=== PATIENT | female | born 1975 | race Caucasian/White ===

== ENCOUNTER 2016-08-18 14:25 | Emergency (ER) | payer MEDICAID, MEDICARE, OTHER ==
[2016-08-18 14:39] VITALS: BP 149/94; TEMP 96.6; O2SAT 100
--- NOTE | 2016-08-18 15:33 | ED.PDOC ---
History of Present Illness - General Chief Complaint: Problem Stated Complaint: burning with urination Time Seen by Provider: 08/18/16 15:30 Source: patient Exam Limitations: no limitations - History of Present Illness Initial Comments: She stated that her burning pain on urination started 3 days ago which usually occur at the end of her urination no hematuria no nausea vomiting feels warmth, no flank pain denies history of sti. Timing/Duration: other - 3 days ago Improving Factors: nothing Worsening Factors: nothing Associated Symptoms: denies symptoms Allergies/Adverse Reactions: Allergies NO KNOWN ALLERGY Allergy (Verified 06/19/15 08:57) Home Medications: Ambulatory Orders Famotidine [Pepcid Tab] 10 mg PO BID 06/19/15 Lisinopril & Hydrochlorothiazi [Lisinopril/Hctz 10-12.5 mg] 1 tab PO DAILY 06/19 Nitrofurantoin Monohydrate Mac [Macrobid] 100 mg PO BID #10 cap 08/18/16 Phenazopyridine HCl [Pyridium] 200 mg PO BID PRN #14 tab 08/18/16 Review of Systems - Review of Systems Constitutional: States: no symptoms reported EENTM: States: no symptoms reported Respiratory: States: no symptoms reported Cardiology: States: no symptoms reported Gastrointestinal/Abdominal: States: no symptoms reported Genitourinary: States: see HPI, dysuria Musculoskeletal: States: no symptoms reported Skin: States: no symptoms reported Neurological: States: no symptoms reported Endocrine: States: no symptoms reported Hematologic/Lymphatic: States: no symptoms reported Past Medical History (General) - Patient Medical History Hx Seizures: No Hx Stroke: No Hx Dementia: No Hx of COPD: No Hx Cardiac Disorders: No Hx Congestive Heart Failure: No Hx Hypertension: Yes Hx Diabetes: No Hx Gastroesophageal Reflux: Yes Surgical History: cholecystectomy, Hysterectomy Other Surgeries:: - Vaccination History Hx Tetanus, Diphtheria Vaccination: Yes Hx Influenza Vaccination: Yes - Social History Hx Tobacco Use: Yes Hx Alcohol Use: No Hx Substance Use: No Hx Substance Use Treatment: No Hx Depression: No - Female History Patient is a Female of Child Bearing Age (10 -59 yrs old): No Family Medical History - Family History Mother Family History: Unknown Living Status: Still Living Hx Family Asthma: No Hx Family Hypertension: Yes Hx Family Diabetes: Yes Hx Family Cancer: Yes - prostate-dad Physical Exam - Physical Exam General Appearance: Alert, No apparent distress Ears, Nose, Throat: hearing grossly normal, normal ENT inspection, normal pharynx Neck: non-tender, full range of motion, supple Respiratory: chest non-tender, lungs clear, normal breath sounds, no respiratory distress Cardiovascular/Chest: normal peripheral pulses, regular rate, rhythm Peripheral Pulses: radial,right: 2+, radial,left: 2+ Gastrointestinal/Abdominal: normal bowel sounds, non tender, soft Back Exam: normal inspection, no CVA tenderness Extremity: normal range of motion, non-tender, normal inspection Neurologic: no motor/sensory deficits, alert Skin Exam: normal color, warm/dry Lymphatic: no adenopathy Progress - Results/Orders Results/Orders: 08/18/16 14:40 UA [URINALYSIS] Stat Laboratory Results Urine Color Yellow (Yellow) 08/18/16 14:40 Urine Appearance Cloudy (Clear) 08/18/16 14:40 Urine pH 8.5 (4.5-7.8) H 08/18/16 14:40 Ur Specific [place] 1.020 (1.005-1.030) 08/18/16 14:40 Urine Protein >=300 mg/dL H 08/18/16 14:40 Urine Glucose (UA) Negative mg/dL (Negative) 08/18/16 14:40 Urine Ketones Negative mg/dL (NEGATIVE) 08/18/16 14:40 Urine Blood Moderate (Negative) H 08/18/16 14:40 Urine Nitrite Negative 08/18/16 14:40 Urine Bilirubin Negative (NEGATIVE) 08/18/16 14:40 Urine Urobilinogen 0.2 mg/dL (0.2-1.0) 08/18/16 14:40 Ur Leukocyte Esterase Trace (Negative) H 08/18/16 14:40 Urine RBC 20-30 /hpf H 08/18/16 14:40 Urine WBC 10-20 /hpf H 08/18/16 14:40 Ur Epithelial Cells 1-3 /hpf 08/18/16 14:40 Urine Bacteria Rare 08/18/16 14:40 Departure - Departure Clinical Impression: Urinary tract infection Qualifiers: Urinary tract infection type: site unspecified Hematuria presence: with hematuria Qualifier Code: (N39.0) Urinary tract infection, site not specified Time of Disposition: 15:38 Disposition: Discharge to Home or Self Care Condition: Good Departure Forms: ED Discharge - Pt. Copy, Patient Portal Self Enrollment Instructions: DI for Urinary Tract Infection (UTI) Prescriptions: Nitrofurantoin Monohydrate Mac [Macrobid] 100 mg PO BID #10 cap Phenazopyridine HCl [Pyridium] 200 mg PO BID PRN #14 tab PRN Reason: Bladder Pain Home Medications: Ambulatory Orders Famotidine [Pepcid Tab] 10 mg PO BID 06/19/15 Lisinopril & Hydrochlorothiazi [Lisinopril/Hctz 10-12.5 mg] 1 tab PO DAILY 06/19 Nitrofurantoin Monohydrate Mac [Macrobid] 100 mg PO BID #10 cap 08/18/16 Phenazopyridine HCl [Pyridium] 200 mg PO BID PRN #14 tab 08/18/16
== END 2016-08-18 15:49 | disposition home or self-care (01) ==
LOC: ER 14:25
DX: N39.0 Urinary tract infection, site not specified (principal); I10 Essential (primary) hypertension; K21.9 Gastro-esophageal reflux disease without esophagitis; Z87.891 Personal history of nicotine dependence

== ENCOUNTER → 2020-06-16 | Outpatient (CLI) | payer BC, OTHER ==
--- NOTE | 2020-06-18 14:59 | RAD ---
EXAM DESCRIPTION: Forearm,Right CLINICAL HISTORY: 45 years Female, CLOSED FX OF ULNA COMPARISON: Previous x-ray right forearm April 17, 2020 FINDINGS: Plate and screws are placed across ulnar diaphyseal fracture with small fragment near anatomically aligned bilaterally. Lucencies in the distal ulna may be bone cysts or subchondral geode. Anatomic alignment is seen on two views. Along the ventral aspect, bridging callus is noted. There is still lucency at the fracture line consistent with incomplete healing. IMPRESSION: Partial healing of internally fixated right ulnar fracture with anatomic alignment. Electronically signed by: Valeriy Mitchell MD 06/18/2020 2:58 PM [facility]
== END ==
LOC: RAD 15:28
PROVIDERS: ATTEND Orthopaedic Surgery
DX: S52.201D Unspecified fracture of shaft of right ulna, subsequent encounter for closed fracture with routine healing (principal)

== ENCOUNTER 2020-06-26 05:18 | Emergency (ER) | payer BC, OTHER ==
[2020-06-26] MEDS ORDERED: SODIUM CHLORIDE 0.9% (FLUSH) 10 ML SYG IV PRN (05:24)
--- NOTE | 2020-06-26 05:24 | ED.PDOC ---
History of Present Illness - General Time Seen by Provider: 06/26/20 05:23 Source: patient - History of Present Illness Initial Comments: 45-year-old female with past medical history of hypertension who presents with chief complaint of acute abdominal pain. Sudden onset around 5 AM this morning which awoke her from sleep, describes as waxing and waning excruciating sharp pain difficult to describe, at worst was 10/10 severity earlier, has not eased o nly slightly since onset with sitting up, no medications taken for relief, pain radiates across the entire lower abdomen. Reports nausea without emesis. Denies any fevers, chills, chest pain, cough, dyspnea, dysuria, hematuria. Patient reports she is currently taking Caltrate to help with a healing wound to the right upper extremity. Reports last BM was yesterday and normal. Denies any history of similar pain in the past. Denies any history of kidney stones. Previous abdominal surgeries include cholecystectomy and . LMP was 1 month ago. Allergies/Adverse Reactions: Allergies Ketorolac Tromethamine [From Toradol] Allergy (Verified 06/26/20 05:51) Home Medications: Ambulatory Orders Famotidine [Pepcid Tab] 10 mg PO BID 06/19/15 Lisinopril & Hydrochlorothiazi [Lisinopril/Hctz 10-12.5 mg] 1 tab PO DAILY 06/19/15 Nitrofurantoin Monohydrate Mac [Macrobid] 100 mg PO BID #10 cap 08/18/16 Phenazopyridine HCl [Pyridium] 200 mg PO BID PRN #14 tab 08/18/16 Hydrocodone-Acetaminophen [[place] 7.5-325 mg] 1 tab PO Q6H PRN #20 tab 04/17/20 Ibuprofen [Motrin] 600 mg PO Q6H PRN #20 tab 04/17/20 Methocarbamol [Robaxin] 750 mg PO Q6H PRN #20 tab 04/17/20 Review of Systems - Review of Systems Review of Systems: 06/26/20 05:24 as per HPI All other Systems: Reviewed and Negative Past Medical History (General) - Patient Medical History Hx Seizures: No Hx Stroke: No Hx Dementia: No Hx of COPD: No Hx Cardiac Disorders: No Hx Congestive Heart Failure: No Hx Hypertension: Yes Hx Diabetes: No Hx Gastroesophageal Reflux: Yes - Vaccination History Hx Tetanus, Diphtheria Vaccination: Yes Hx Influenza Vaccination: Yes - Social History Hx Tobacco Use: Yes Hx Alcohol Use: No Hx Substance Use: No Hx Substance Use Treatment: No Hx Depression: No Family Medical History - Family History Mother Family History: Unknown Living Status: Still Living Hx Family Asthma: No Hx Family Hypertension: Yes Hx Family Diabetes: Yes Hx Family Cancer: Yes - prostate-dad Physical Exam - Physical Exam General Appearance: Alert, Anxious, Obese, Restless Eye Exam: bilateral normal Ears, Nose, Throat: hearing grossly normal, normal ENT inspection, normal pharynx Neck: non-tender, full range of motion, supple, normal inspection Respiratory: lungs clear, normal breath sounds, no respiratory distress, no accessory muscle use Cardiovascular/Chest: normal peripheral pulses, regular rate, rhythm, no edema, no gallop, no JVD, no murmur Peripheral Pulses: radial,right: 2+, radial,left: 2+ Gastrointestinal/Abdominal: soft, no organomegaly, tenderness - moderate to lower abdominal region w/o rebound or guarding Back Exam: normal inspection, no CVA tenderness, no vertebral tenderness Extremity: normal range of motion, non-tender, normal inspection, no pedal edema, no calf tenderness, normal capillary refill Neurologic: reconciliation coordinator II-XII nml as tested, no motor/sensory deficits, alert, normal mood/affect, oriented x 3 Skin Exam: normal color, warm/dry Progress - Progress Progress: 06/26/20 05:46 Acute lower abdominal pain -Consider UTI, kidney stone, acute appendicitis, ectopic , peritonitis, small bowel obstruction, constipation, diverticulitis, other -Patient with stable vitals but appears in significant pain and discomfort -Obtain stat abdominal work-up, UA, hCG, KUB. Anticipate CT imaging once labs back -Place peripheral IV, 1 L normal saline bolus, Zofran 4 mg IV. Patient reports allergy to Toradol and morphine. Denies any IV pain medications. Will give hydrocodone 5 p.o. per request 06/26/20 06:00 -Pt urinated and now her pain is resolved. She feels markedly better, sitting up in bed comfortably, no distress. States now she "feels silly" for coming here. ?Possible kidney stone which may have passed. Will await UA results. 06/26/20 06:47 -UA with small blood. Remainder of labs largely unremarkable. -Pt remains stable, no return of pain, feels back to normal self. I suspect most likely she did have a tiny stone which she spontaneously passed in the ED. Discussed diagnosis with the patient. I advised that she discontinue the Caltrate which may have contributed to the stone formation. Remain well- hydrated. Return if worsening. Discharged home in good condition. Ed Williamson MD Billing #[id number] 06/26/20 05:24 IV Care:Saline Lock per Protoc QSHIFT Sodium Chloride 0.9% (Flush) [Saline Flush Syringe] 10 ml IV PRN PRN EKG Assessment ONCE 06/26/20 05:30 EKG STAT Laboratory Results - last 24 hr 06/26/20 06/26/20 06/26/20 05:35 05:35 05:35 WBC 8.3 RBC 4.48 Hgb 12.8 Hct 37.9 MCV 84.6 MCH 28.7 MCHC 33.9 RDW 13.2 Plt Count 248 MPV 7.4 Absolute Neuts (auto) 5.10 Absolute Lymphs (auto) 2.30 Absolute Monos (auto) 0.70 Absolute Eos (auto) 0.10 Absolute Basos (auto) 0.10 Neutrophils % 62.0 Lymphocytes % 27.5 Monocytes % 8.0 Eosinophils % 1.6 Basophils % 0.9 Sodium 136 Potassium 3.9 Chloride 100 L Carbon Dioxide 22 Anion Gap 17.9 BUN 10 Creatinine 0.67 BUN/Creatinine Ratio 14.9 Random Glucose 108 H Serum Osmolality 271.5 L Calcium 8.8 Total Bilirubin 0.5 Direct Bilirubin 0.1 Indirect Bilirubin 0.4 AST 13 ALT 13 Alkaline Phosphatase 82 Serum Total Protein 7.4 Albumin 3.6 Amylase 47 Lipase 30 Serum HCG, Qual Urine Color Urine Appearance Urine pH Ur Specific [place] Urine Protein Urine Glucose (UA) Urine Ketones Urine Blood Urine Nitrite Urine Bilirubin Urine Urobilinogen Ur Leukocyte Esterase Urine RBC Urine WBC Ur Epithelial Cells Urine Bacteria 06/26/20 06/26/20 05:35 06:00 WBC RBC Hgb Hct MCV MCH MCHC RDW Plt Count MPV Absolute Neuts (auto) Absolute Lymphs (auto) Absolute Monos (auto) Absolute Eos (auto) Absolute Basos (auto) Neutrophils % Lymphocytes % Monocytes % Eosinophils % Basophils % Sodium Potassium Chloride Carbon Dioxide Anion Gap BUN Creatinine BUN/Creatinine Ratio Random Glucose Serum Osmolality Calcium Total Bilirubin Direct Bilirubin Indirect Bilirubin AST ALT Alkaline Phosphatase Serum Total Protein Albumin Amylase Lipase Serum HCG, Qual Negative Urine Color Yellow Urine Appearance Clear Urine pH 5.5 Ur Specific [place] 1.020 Urine Protein Negative Urine Glucose (UA) Negative Urine Ketones Negative Urine Blood Small H Urine Nitrite Negative Urine Bilirubin Negative Urine Urobilinogen 0.2 Ur Leukocyte Esterase Negative Urine RBC 1-3 Urine WBC 0 Ur Epithelial Cells 1-3 Urine Bacteria 0 - EKG/XRAY/CT EKG: Sinus - NSR, HR 75, no ST elevations or q waves, axis normal, intervals normal, appears unchanged from 06/19/15 EKG XRAY: abdomen - no acute processes per my read Departure - Departure Clinical Impression: Abdominal pain Qualifiers: Abdominal location: lower abdomen, unspecified Qualified Code(s): R10.30 - Lower abdominal pain, unspecified Time of Disposition: 06:49 Disposition: Discharge to Home or Self Care Condition: Good Instructions: Acute Pelvic Pain (DC), Kidney Stones (DC) Diet: resume usual diet Activity: increase activity as tolerated Referrals: Yolette Fuller NP [Primary Care Provider] - 1-2 Weeks Home Medications: Ambulatory Orders Famotidine [Pepcid Tab] 10 mg PO BID 06/19/15 Lisinopril & Hydrochlorothiazi [Lisinopril/Hctz 10-12.5 mg] 1 tab PO DAILY 06/19/15 Nitrofurantoin Monohydrate Mac [Macrobid] 100 mg PO BID #10 cap 08/18/16 Phenazopyridine HCl [Pyridium] 200 mg PO BID PRN #14 tab 08/18/16 Hydrocodone-Acetaminophen [[place] 7.5-325 mg] 1 tab PO Q6H PRN #20 tab 04/17/20 Ibuprofen [Motrin] 600 mg PO Q6H PRN #20 tab 04/17/20 Methocarbamol [Robaxin] 750 mg PO Q6H PRN #20 tab 04/17/20 Additional Instructions: Remain well-hydrated and gradually advance your diet and activity level as tolerated. Return the ED if symptoms return or other concerning symptoms develop. Continue take [id number] medications as needed for pain such as ibuprofen and Tylenol. Follow-up with your primary care doctor is recommended in the next 1 to 2 weeks for repeat evaluation or sooner as needed.
[2020-06-26] MEDS ORDERED: SODIUM CHLORIDE 0.9% 1000ML 1,000 ML IVS ONE (05:25)
[2020-06-26] MEDS ORDERED: HYDROcodone 5MG/APAP 325MG 1 EA TAB PO ONE (05:35)
[2020-06-26] MEDS ORDERED: ONDANSETRON INJ 4 MG/2 ML VIAL IV ONE (05:35)
--- NOTE | 2020-06-26 06:03 | RAD ---
EXAM: XR Abdomen, 1 View CLINICAL HISTORY: The patient is 45 years old and is Female; acute lower abdominal pain TECHNIQUE: Single supine view of the abdomen/pelvis. COMPARISON: X-ray abdomen series June 19, 2015. FINDINGS: Lower thorax: Visualized lung bases are clear. Gastrointestinal tract: No dilated bowel loops. Organs: Cholecystectomy surgical clips. Bones/joints: Unremarkable. IMPRESSION: No acute findings in the abdomen or pelvis. Electronically signed by: Joslyn Zuñiga MD 06/26/2020 6:[address] [facility]
[2020-06-26 07:20] VITALS: BP 145/79; TEMP 97.5; O2SAT 99
== END 2020-06-26 07:17 | disposition home or self-care (01) ==
LOC: ER 05:18
DX: R10.30 Lower abdominal pain, unspecified (principal); R11.0 Nausea; R31.9 Hematuria, unspecified; K21.9 Gastro-esophageal reflux disease without esophagitis; I10 Essential (primary) hypertension; Z90.49 Acquired absence of other specified parts of digestive tract; Z79.899 Other long term (current) drug therapy; Z87.891 Personal history of nicotine dependence
CPT/HCPCS: 74018; 80048; 80076; 81001; 82150; 83690; 84703; 85025; 93005; A4216; J2405; J7030